=== PATIENT | male | born 1985 | race African-American/Black ===

== ENCOUNTER 2019-10-10 19:29 | Emergency (ER) | payer BC ==
--- NOTE | 2019-10-11 09:02 | RAD ---
PORTABLE CHEST: DATE: 10/10/2019. FINDINGS: An AP portable film at 2001 is submitted with no prior films available for comparison. There is a dense right middle lobe consolidation consistent with pneumonia. The left lung seems [place]. The heart is slightly enlarged, but there is no vascular congestion or edema. IMPRESSION: 1. Dense right middle lobe consolidation. The finding is most consistent with a bacterial pneumonia . Followup to resolution will be needed. 2. Mild cardiomegaly. Findings discussed with Dr. Rhoades at 2026 on 10/10/2019. CODE CR POS: HOME
== END 2019-10-10 20:25 | disposition home or self-care (01) ==
LOC: BURERS 19:29
DX: J15.9 Unspecified bacterial pneumonia (principal); G47.30 Sleep apnea, unspecified; Z79.899 Other long term (current) drug therapy
CPT/HCPCS: 71045; 87804